=== PATIENT | female | born 1950 | race Caucasian/White ===

== ENCOUNTER 2017-10-03 22:53 | Emergency (ER) | payer MEDICARE ==
[~2017-10-03] VITALS: Ht 160 cm; Wt 85.7 kg
[~2017-10-03 22:53] MED LIST: ADVAI250I INH; ALBU0.086 NEB; BENZ100 PO; CLON.5 PO; HYCO5UDC PO; IBUP600T26 PO; MEDR4PAK3 PO; NEXI20CA PO; ZOFR4TAB3 SL
[2017-10-03 23:08] VITALS: BP 122/70; PULSE 81; RESP 16; TEMP 97.5; O2SAT 98
[2017-10-03] MEDS ORDERED: ALBUAER3 NEB (23:27)
[2017-10-03] MEDS ORDERED: CLON.5 PO (23:27)
[2017-10-03] MEDS ORDERED: [UNRECOGNIZED DRUG - OTHER] PO (23:34)
[2017-10-03] MEDS ORDERED: ADVA250A INH (23:34)
[2017-10-03] MEDS ORDERED: VITA500S3 SL (23:34)
[2017-10-03] MEDS ORDERED: PROZ20CA11 PO (23:34)
[2017-10-03] MEDS ORDERED: VITA100064 PO (23:34)
[2017-10-03] MEDS ORDERED: VITATAB11 PO (23:34)
[2017-10-03] MEDS ORDERED: CLAR10CA3 PO (23:34)
[2017-10-03] MEDS ORDERED: LUTE1TAB PO (23:34)
[2017-10-03] MEDS ORDERED: MULTTAB67 PO (23:34)
[2017-10-04] MEDS ORDERED: BACT800T5 PO (00:15)
[2017-10-04] MEDS ORDERED: MEDR4PAK PO (00:15)
[2017-10-04] MEDS ORDERED: FAMOTIDINE 20 MG TAB PO ONE (00:15)
[2017-10-04] MEDS ORDERED: CEPHALEXIN MONOHYDRATE 500 MG CAP PO ONE (00:15)
[2017-10-04] MEDS ORDERED: CEPH-460 PO (00:15)
[2017-10-04] MEDS ORDERED: SULFAMETHOXAZOLE-TRIMETHOPRIM DS 800-160 MG TAB PO ONE (00:15)
[2017-10-04] MEDS ORDERED: CETIRIZINE HCL 10 MG TAB PO ONE (00:15)
--- NOTE | 2017-10-04 00:17 | PD ---
HPI Chief Complaint: Skin Problem Time Seen by Provider: 00:05 Travel History International Travel<30 days: No Contact w/Intl Traveler<30days: No Traveled to known affect area: No History of Present Illness HPI 67 year old female here for painful localized red indurated tender proximal medial right thigh lesion. Patient states that she noticed this this evening further first time while at a play this evening. 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 No generalized urticaria no lip tongue or throat swelling. Patient does have history of asthma and didn't use her inhaler this evening but cannot recall if she used the inhaler for wheezing before after she noticed the pain to her thigh area. Patient does not feel short of breath at this time has no chest pain and had no near-syncope or syncopal episode nausea vomiting crampy abdominal pain or diarrhea. Patient is not diabetic. PFSH Past Medical History Narrative Medical Aspirin use asthma TIA pneumonia hysterectomy blood blepharoplasty occasional alcohol use Hx Anticoagulant Therapy: Yes (ASA 81 MG) Asthma: Yes Cerebrovascular Accident: Yes (TIA X2) Diminished Hearing: Yes (CURRENT PROBLEM) Gastrointestinal Disorders: Yes (ACID REFLUX ) Pneumonia: Yes Tetanus Vaccination: > 5 Years ?: Not Menopausal: Yes Past Surgical History Hysterectomy: Yes Other Surgery: Yes (BILATERAL EYE LIDS 2010) Social History Alcohol Use: Yes (RARE) Tobacco Use: No Substance Use: No Allergies-Medications (Allergen,Severity, Reaction): Coded Allergies: codeine (Verified Allergy, Severe, VOMITING, 10/03/17) Reported Meds & Prescriptions Reported Meds & Active Scripts Active Keflex (Cephalexin) 500 Mg Capsule 500 Mg PO Q6H 7 Days Bactrim DS (Sulfamethoxazole-Trimethoprim) 800-160 Mg Tab 1 Tab PO BID Medrol Dosepak (Methylprednisolone) 4 Mg Dspk 4 Mg PO DIRECTED Per Pharmacist direction Reported [Giorgio Rubin] 1 Tab PO DAILY Lutein 10 Mg Tab 10 Mg PO DAILY Vitamin B-12 (Cyanocobalamin) 500 Mcg Subl 500 Mcg SL DAILY Vitamin D3 (Cholecalciferol) 1,000 Unit Tab 1,000 Units PO DAILY Vitamin B Complex (B-Complex Vitamins) 1 Tab 1 Tab PO DAILY Multiple Vitamin 1 Tab 1 Tab PO DAILY Claritin (Loratadine) 10 Mg Cap 10 Mg PO DAILY Prozac (Fluoxetine HCl) 20 Mg Cap 20 Mg PO DAILY Advair Diskus Inh (Fluticasone-Salmeterol Inh) 250-50 Mcg/Blist Aer 1 Puff INH BID Rinse mouth after use. Klonopin (Clonazepam) 0.5 Mg Tab 0.5 Mg PO HS Proair Hfa (Albuterol Sulfate) 90 Mcg Hfa.aer.ad 1 Nebule NEB Q4HR PRN Review of Systems Except as stated in HPI: all other systems reviewed are Neg General / Constitutional: No: Fever, Chills Eyes: No: Visual changes HENT: No: Headaches Cardiovascular: No: Chest Pain or Discomfort Respiratory: No: Shortness of Breath Gastrointestinal: No: Nausea, Vomiting Genitourinary: No: Flank Pain Musculoskeletal: No: Myalgias, Arthralgias Skin: Positive Rash Neurologic: No: Weakness Hematologic/Lymphatic: No: Lymph Node Enlargement Physical Exam Narrative GENERAL: Well-developed well-nourished female in no acute distress no respiratory distress no stridor or hoarseness. SKIN: Warm and dry. No urticaria. Attention right lower extremity proximal medial thigh oval area of erythema with central induration without fluctuance 5 cm x 4 cm tender to palpation without ascending erythema or groin lymphadenopathy. On direct visualization no vesicle no central puncture wound. HEAD: Normocephalic. EYES: No scleral icterus. No injection or drainage. NECK: Supple, trachea midline. No JVD or lymphadenopathy. CARDIOVASCULAR: Regular rate and rhythm without murmurs, gallops, or rubs. RESPIRATORY: Breath sounds equal bilaterally. No accessory muscle use. GASTROINTESTINAL: Abdomen soft, non-tender, nondistended. MUSCULOSKELETAL: No cyanosis, or edema. BACK: Nontender without obvious deformity. No CVA tenderness. Data Data Last Documented VS Vital Signs Date Time Temp Pulse Resp B/P (MAP) Pulse Ox O2 Delivery O2 Flow Rate FiO2 10/03/17 23:08 97.5 81 16 122/70 (87) 98 Orders Orders Cetirizine (Zyrtec) (10/04/17 00:15) Famotidine (Pepcid) (10/04/17 00:15) Sulfamet-Trimeth Ds 800-160 Mg (Bactrim (10/04/17 00:15) Cephalexin (Keflex) (10/04/17 00:15) Ed Discharge Order (10/04/17 00:17) [facility] Medical Decision Making Medical Screen Exam Complete: Yes Emergency Medical Condition: Yes Medical Record Reviewed: Yes Differential Diagnosis Contact dermatitis, allergic dermatitis, spider bite, ant bite, cellulitis, folliculitis, abscess Narrative Course Patient with localized area of erythema and induration without fluctuance pointing pustule or vesicle concerning for focal area of cellulitis versus insect envenomation versus allergic dermatitis will be started on oral antibiotic encouraged to use warm compresses take acetaminophen or ibuprofen as tolerated also recommend use of H2 blockers and antihistamine for symptom relief. Patient encouraged to follow-up with her primary care provider or return to the emergency department for any worsening of condition condition or change in condition. Patient encouraged to monitor temperature closely while on antibiotic and may need to return to have incision and drainage of site is may represent early abscess although no indication for abscess at this time. Diagnosis Primary Impression: Allergic dermatitis Additional Impression: Cellulitis of right thigh Referrals: Primary Care Physician 2 days Patient Instructions: General Instructions Additional Instructions: Monitor temperature every 4 hours with thermometer take acetaminophen/Tylenol every 4 hours for fever 100.4F or greater and/or ibuprofen/Advil/Motrin every 6 -8 hours as needed for fever 100.4F or greater or for any associated with inflammation Take Zyrtec 10 mg daily or Benadryl 25-50 mg every 4-6 hours as needed for allergic reaction/itching Take Zantac 150 twice daily for 7 days Complete steroid course as prescribed Take antibiotic as prescribed Return to the emergency department for any concerns or change in condition Wound check/site check at 48 hours follow-up with primary care provider Med/Other Pt SpecificInfo: Prescription(s) given Scripts Cephalexin (Keflex) 500 Mg Capsule 500 MG PO Q6H for Infection for 7 Days, #28 CAP 0 Refills Prov: Chana Balbuena MD 10/04/17 Sulfamethoxazole-Trimethoprim (Bactrim DS) 800-160 Mg Tab 1 TAB PO BID for Infection, #14 TAB 0 Refills Prov: Chana Balbuena MD 10/04/17 Methylprednisolone Dosepak (Medrol Dosepak) 4 Mg Dspk 4 MG PO DIRECTED, #1 DSPK 0 Refills Per Pharmacist direction Prov: Chana Balbuena MD 10/04/17 Disposition: 01 DISCHARGE HOME Condition: Stable Chana Balbuena MD Oct 04, 2017 00:17
[2017-10-04] MEDS ORDERED: GARC500T PO (10:48)
== END 2017-10-04 00:26 | disposition home or self-care (01) ==
LOC: PHED 22:53
DX: L23.9 Allergic contact dermatitis, unspecified cause (principal); L03.115 Cellulitis of right lower limb
CPT/HCPCS: 99284

== ENCOUNTER 2018-01-04 15:01 | Inpatient (IN) | payer MEDICARE ==
[2018-01-04] VITALS (7 sets, daily range): BP systolic 105–143; BP diastolic 55–83; PULSE 97–110; RESP 18–20; TEMP 97.8–98.6; O2SAT 96–100
[~2018-01-04] VITALS: Ht 160 cm; Wt 92.1 kg
[~2018-01-04 15:01] MED LIST changes: +ADVA250A INH; -ADVAI250I INH; -ALBU0.086 NEB; +ALBUAER3 NEB; +BACT800T5 PO; -BENZ100 PO; +CEPH-460 PO; +CLAR10CA3 PO; +GARC500T PO; -HYCO5UDC PO; -IBUP600T26 PO; +LUTE1TAB PO; +MEDR4PAK PO; -MEDR4PAK3 PO; +MULTTAB67 PO; -NEXI20CA PO; +PROZ20CA11 PO; +VITA100064 PO; +VITA500S3 SL; +VITATAB11 PO; -ZOFR4TAB3 SL; +[UNRECOGNIZED DRUG - OTHER] PO
[2018-01-04] MEDS ORDERED: cefTRIAXone INJ 1,000 MG in SODIUM CHLORIDE 0.9% INJ 100 ML IV ONE (15:15)
[2018-01-04] MEDS ORDERED: AZITHROMYCIN INJ 500 MG in SODIUM CHLOR 0.9% 250 ML INJ 250 ML IV ONE (15:15)
[2018-01-04] MEDS ORDERED: methylPREDNISolone SOD SUCC 125 MG/2 ML VIAL IV PUSH ONE (15:15)
[2018-01-04] MEDS ORDERED: SODIUM CHLOR 0.9% 1000 ML INJ 1,000 ML IV SCH ×2 (15:15→16:08)
--- NOTE | 2018-01-04 15:22 | PD ---
HPI Chief Complaint: Cold / Flu Symptoms Time Seen by Provider: 15:05 Travel History International Travel<30 days: No Contact w/Intl Traveler<30days: No Traveled to known affect area: No History of Present Illness HPI This is a 67-year-old female with a history of asthma who presents for difficulty breathing. She states that on December 30, she developed cough, congestion, wheezing and sore throat. She saw her primary physician the next day and was started on prednisone and cefuroxime. She has been using her nebulizer frequently. Despite this, she continues to have worsening shortness of breath. Aggravated by exertion. She believes she has been febrile at home. Her was diagnosed with influenza today. She states that she has had to be hospitalized for asthma exacerbations frequently in the past. 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 She denies chest pain, diaphoresis, lower extremity edema. No associated nausea, vomiting, diarrhea. Symptoms are moderate in severity. Onset gradual. PFSH Past Medical History Hx Anticoagulant Therapy: Yes (ASA 81 MG) Asthma: Yes Cerebrovascular Accident: Yes (TIA X2) Diminished Hearing: Yes (CURRENT PROBLEM) Gastrointestinal Disorders: Yes (ACID REFLUX ) Respiratory: Yes Pneumonia: Yes ?: Not Menopausal: Yes Past Surgical History Hysterectomy: Yes Other Surgery: Yes (BILATERAL EYE LIDS 2010) Social History Alcohol Use: Yes (RARE) Tobacco Use: No Substance Use: No Allergies-Medications (Allergen,Severity, Reaction): Coded Allergies: codeine (Verified Allergy, Severe, VOMITING, 01/04/18) Reported Meds & Prescriptions Reported Meds & Active Scripts Active Reported Acyclovir 400 Mg Tab 400 Mg PO BID Cefuroxime (Cefuroxime Axetil) 500 Mg Tab 500 Mg PO BID Prednisone (48) 10 mg tab Dose Pack (Prednisone) 10 Mg Dspk 10 Mg PO DIRECTED Prednisone 10 Mg Tab 10 Mg PO DAILY Garcinia Cambogia 500-200 mg-Mcg (Garcinia Cambogia-Chromium) 200 Mcg-500 Mg Tab 1 Tab PO DAILY Lutein 10 Mg Tab 10 Mg PO DAILY Vitamin B-12 (Cyanocobalamin) 500 Mcg Subl 500 Mcg SL DAILY Vitamin D3 (Cholecalciferol) 1,000 Unit Tab 1,000 Units PO DAILY Vitamin B Complex (B-Complex Vitamins) 1 Tab 1 Tab PO DAILY Multiple Vitamin 1 Tab 1 Tab PO DAILY Claritin (Loratadine) 10 Mg Cap 10 Mg PO DAILY Prozac (Fluoxetine HCl) 20 Mg Cap 20 Mg PO DAILY Advair Diskus Inh (Fluticasone-Salmeterol Inh) 250-50 Mcg/Blist Aer 1 Puff INH BID Rinse mouth after use. Klonopin (Clonazepam) 0.5 Mg Tab 0.5 Mg PO HS Proair Hfa (Albuterol Sulfate) 90 Mcg Hfa.aer.ad 1 Nebule NEB Q4HR PRN Review of Systems Except as stated in HPI: all other systems reviewed are Neg Physical Exam Narrative GENERAL: Alert, well nourished, well appearing patient resting on the bed in no acute distress. Vital Signs reviewed SKIN: Focused skin assessment warm/dry. HEAD: Atraumatic. Normocephalic. EYES: Pupils equal and round. No scleral icterus. No injection or drainage. ENT: No nasal bleeding or discharge. Mucous membranes pink and moist. Posterior oropharynx with no erythema, edema, exudate. Uvula is midline. NECK: Trachea midline. No JVD. Spontaneous, painless full range of motion with no meningismus CARDIOVASCULAR: Regular rate and rhythm. No murmur appreciated. Extremities warm and well perfused with bounding peripheral pulses RESPIRATORY: Mildly increased work of breathing. Diffuse expiratory wheezes. Symmetric lung sounds. GASTROINTESTINAL: Abdomen soft, non-tender, nondistended. Normal bowel sounds. No rigid, rebound, guarding MUSCULOSKELETAL: No obvious deformities. No clubbing. No cyanosis. No edema. Compartments are soft NEUROLOGICAL: Awake and alert. No obvious cranial nerve deficits. Motor grossly within normal limits. Normal speech. Sensation intact. Normal gait PSYCHIATRIC: Appropriate mood and affect; insight and judgment normal. Data Data Last Documented VS Vital Signs Date Time Temp Pulse Resp B/P (MAP) Pulse Ox O2 Delivery O2 Flow Rate FiO2 01/04/18 15:37 97 20 105/58 (74) 99 Room Air 01/04/18 15:28 21 01/04/18 15:09 98.6 Orders Orders Sepsis Workup Initiated (01/04/18 ) Electrocardiogram (01/04/18 15:13) Complete Blood Count With Diff (01/04/18 15:13) Comprehensive Metabolic Panel (01/04/18 15:13) Lactic Acid Sepsis Protocol (01/04/18 15:13) Influenzae A/B Antigen (01/04/18 15:13) Blood Culture (01/04/18 15:13) Chest, Pa & Lat (01/04/18 15:13) Ecg Monitoring (01/04/18 15:13) Iv Access Insert/Monitor (01/04/18 15:13) Oximetry (01/04/18 15:13) Oxygen Administration (01/04/18 15:13) Methylprednisolone So Succ Inj (Solumedr (01/04/18 15:15) Albuterol-Ipratropium Neb (Duoneb Neb) (01/04/18 15:15) Sodium Chlor 0.9% 1000 Ml Inj (Ns 1000 M (01/04/18 15:15) Ceftriaxone Inj (Rocephin Inj) (01/04/18 15:15) Azithromycin Inj (Zithromax Inj) (01/04/18 15:15) Group A Rapid Strep Screen (01/04/18 15:22) Sodium Chlor 0.9% 1000 Ml Inj (Ns 1000 M (01/04/18 16:08) Strep Culture (Group A) (01/04/18 15:45) Admit Order (Ed Use Only) (01/04/18 16:22) Labs Laboratory Tests Test 01/04/18 15:23 01/04/18 15:28 White Blood Count 7.8 TH/MM3 Red Blood Count 4.84 MIL/MM3 Hemoglobin 14.1 GM/DL Hematocrit 42.4 % Mean Corpuscular Volume 87.6 FL Mean Corpuscular Hemoglobin 29.1 PG Mean Corpuscular Hemoglobin Concent 33.2 % Red Cell Distribution Width 13.7 % Platelet Count 227 TH/MM3 Mean Platelet Volume 7.5 FL Neutrophils (%) (Auto) 89.3 % Lymphocytes (%) (Auto) 6.7 % Monocytes (%) (Auto) 3.5 % Eosinophils (%) (Auto) 0.1 % Basophils (%) (Auto) 0.4 % Neutrophils # (Auto) 7.0 TH/MM3 Lymphocytes # (Auto) 0.5 TH/MM3 Monocytes # (Auto) 0.3 TH/MM3 Eosinophils # (Auto) 0.0 TH/MM3 Basophils # (Auto) 0.0 TH/MM3 CBC Comment DIFF FINAL Differential Comment Blood Urea Nitrogen 14 MG/DL Creatinine 0.76 MG/DL Random Glucose 144 MG/DL Total Protein 7.1 GM/DL Albumin 3.5 GM/DL Calcium Level 9.2 MG/DL Alkaline Phosphatase 80 U/L Aspartate Amino Transf (AST/SGOT) 18 U/L Alanine Aminotransferase (ALT/SGPT) 32 U/L Total Bilirubin 0.1 MG/DL Sodium Level 143 MEQ/L Potassium Level 3.4 MEQ/L Chloride Level 110 MEQ/L Carbon Dioxide Level 22.6 MEQ/L Anion Gap 10 MEQ/L Estimat Glomerular Filtration Rate 75 ML/MIN Lactic Acid Level 3.5 mmol/L [facility] Medical Decision Making Medical Screen Exam Complete: Yes Emergency Medical Condition: Yes Medical Record Reviewed: Yes Interpretation(s) EKG shows sinus tachycardia with a rate of 102. No acute ST elevation Chest x-ray shows no acute process Laboratory Tests Test 01/04/18 15:23 01/04/18 15:28 White Blood Count 7.8 TH/MM3 Red Blood Count 4.84 MIL/MM3 Hemoglobin 14.1 GM/DL Hematocrit 42.4 % Mean Corpuscular Volume 87.6 FL Mean Corpuscular Hemoglobin 29.1 PG Mean Corpuscular Hemoglobin Concent 33.2 % Red Cell Distribution Width 13.7 % Platelet Count 227 TH/MM3 Mean Platelet Volume 7.5 FL Neutrophils (%) (Auto) 89.3 % Lymphocytes (%) (Auto) 6.7 % Monocytes (%) (Auto) 3.5 % Eosinophils (%) (Auto) 0.1 % Basophils (%) (Auto) 0.4 % Neutrophils # (Auto) 7.0 TH/MM3 Lymphocytes # (Auto) 0.5 TH/MM3 Monocytes # (Auto) 0.3 TH/MM3 Eosinophils # (Auto) 0.0 TH/MM3 Basophils # (Auto) 0.0 TH/MM3 CBC Comment DIFF FINAL Differential Comment Blood Urea Nitrogen 14 MG/DL Creatinine 0.76 MG/DL Random Glucose 144 MG/DL Total Protein 7.1 GM/DL Albumin 3.5 GM/DL Calcium Level 9.2 MG/DL Alkaline Phosphatase 80 U/L Aspartate Amino Transf (AST/SGOT) 18 U/L Alanine Aminotransferase (ALT/SGPT) 32 U/L Total Bilirubin 0.1 MG/DL Sodium Level 143 MEQ/L Potassium Level 3.4 MEQ/L Chloride Level 110 MEQ/L Carbon Dioxide Level 22.6 MEQ/L Anion Gap 10 MEQ/L Estimat Glomerular Filtration Rate 75 ML/MIN Lactic Acid Level 3.5 mmol/L Differential Diagnosis Sepsis, asthma exacerbation, bronchitis, pneumonia, influenza, strep pharyngitis , viral pharyngitis Narrative Course The patient was placed on the brick catcher. IV access was established. Labs , imaging were performed. Patient was given IV fluid boluses. She was given Rocephin and azithromycin to cover community-acquired pneumonia. She was given Solu-Medrol and duo nebs. Patient is influenza A positive. She has had her symptoms for well over 48 hours and I do not feel she would benefit from Tamiflu. Patient has already been using albuterol nebulizers and prednisone at home. She has failed outpatient therapy. Plan for admission for further evaluation and care. Diagnosis Primary Impression: Sepsis Qualified Codes: A41.9 - Sepsis, unspecified organism Additional Impressions: Influenza Bronchitis Failure of outpatient treatment Admitting Information Admitting Physician Requests: it Carmelina Evans MD Jan 04, 2018 15:22
[2018-01-04] MEDS: RESP: ALBUTEROL 2.5 MG/IPRATROPIUM 0.5 MG NEB (SCH) INH (15:26)
[2018-01-04] MEDS ORDERED: PRED10 PO (15:30)
[2018-01-04] MEDS ORDERED: CEFU1TAB20 PO (15:30)
[2018-01-04] MEDS ORDERED: PRED10PA2 PO (15:30)
[2018-01-04] MEDS ORDERED: ACYC400T PO (15:32)
[2018-01-04 15:34] LABS: BASOPHIL % 0.4 % (0.0-2.0); EOSINOPHIL % 0.1 % (0.0-4.0); HEMATOCRIT 42.4 % (35.0-46.0); HEMOGLOBIN 14.1 GM/DL (11.6-15.3); LYMPH % 6.7 % (9.0-44.0); LYMPHOCYTE # 0.5 TH/MM3 (1.0-4.8); MEAN CELL VOLUME 87.6 FL (80.0-100.0); MEAN CORPUSCULAR HEMOGLOBIN 29.1 PG (27.0-34.0); MEAN CORPUSCULAR HGB CONC 33.2 % (32.0-36.0); MEAN PLATELET VOLUME 7.5 FL (7.0-11.0); MONO % 3.5 % (0.0-8.0); MONOCYTE # 0.3 TH/MM3 (0-0.9); NEUT % 89.3 % (16.0-70.0); PLATELET COUNT 227 TH/MM3 (150-450); RED BLOOD COUNT 4.84 MIL/MM3 (4.00-5.30); RED CELL DISTRIBUTION WIDTH 13.7 % (11.6-17.2); WHITE BLOOD COUNT 7.8 TH/MM3 (4.0-11.0)
[2018-01-04 15:45] LABS: CHLORIDE 110 MEQ/L (98-107); SODIUM (NA) 143 MEQ/L (136-145)
[2018-01-04 15:48] LABS: CALCIUM 9.2 MG/DL (8.5-10.1)
[2018-01-04 15:49] LABS: ALBUMIN 3.5 GM/DL (3.4-5.0); BICARBONATE 22.6 MEQ/L (21.0-32.0); BLOOD UREA NITROGEN 14 MG/DL (7-18); GLUCOSE,RANDOM 144 MG/DL (74-106)
[2018-01-04 15:52] LABS: ALT (GPT) 32 U/L (10-53); AST (GOT) 18 U/L (15-37); CREATININE 0.76 MG/DL (0.50-1.00); GLOMERULAR FILTRATION RATE 75 ML/MIN (>89)
[2018-01-04 15:53] LABS: TOTAL BILIRUBIN ADULT 0.1 MG/DL (0.2-1.0); TOTAL PROTEIN 7.1 GM/DL (6.4-8.2)
[2018-01-04 15:54] LABS: LACTIC ACID SEPSIS PROTOCOL 3.5 mmol/L (0.4-2.0)
[2018-01-04 15:55] LABS: ALKALINE PHOSPHATASE 80 U/L (45-117)
--- NOTE | 2018-01-04 16:13 | RADRPT ---
EXAM DATE/TIME: 01/04/2018 15:21 [place] COMPARISON: CHEST PA & LAT, May 11, 2015, 20:12. INDICATIONS : Wheezing. MEDICAL HISTORY : Asthma SURGICAL HISTORY : None. ENCOUNTER: Initial ACUITY: 4 - 6 days PAIN SCORE: 0/10 LOCATION: Bilateral chest FINDINGS: PA and lateral views of the chest demonstrate the lungs to be symmetrically aerated without evidence of mass, infiltrate or effusion. The cardiomediastinal contours are unremarkable. Osseous structure s are intact. CONCLUSION: 1. No acute cardiopulmonary disease. Franklyn Love MD on January 04, 2018 at 16:13 Board Certified Radiologist. This report was verified electronically.
[2018-01-04] MEDS ORDERED: NALOXONE HCL 0.4 MG/ML AMP IV PUSH PRN (16:45)
[2018-01-04] MEDS ORDERED: SODIUM CHLORIDE 0.9% FLUSH 10 ML FLUSH IV FLUSH PRN (16:45)
[2018-01-04] MEDS ORDERED: SENNOSIDES 8.6 MG TAB PO PRN (16:45)
[2018-01-04] MEDS ORDERED: RESP: ALBUTEROL 2.5 MG/IPRATROPIUM 0.5 MG NEB (PRN) NEB (16:45)
[2018-01-04] MEDS ORDERED: ACETAMINOPHEN 325 MG TAB PO PRN (16:45)
[2018-01-04] MEDS ORDERED: ONDANSETRON HCL 4 MG/2 ML VIAL IVP PRN (16:45)
--- NOTE | 2018-01-04 16:50 | HHI.HP ---
[facility] Service [facility] Primary Care Physician Rafal Vo MD Admission Diagnosis Sepsis, Influenza, Bronchitis, Asthma Exacerbation Diagnoses: Chief Complaint: Shortness of breath Travel History International Travel<30 Days: No Contact w/Intl Traveler <30 Da: No Traveled to Known Affected Are: No History of Present Illness Patient is a 67-year-old female with a history of asthma who comes in to the hospital with a week of increasing shortness of breath with cough and sore throat. She saw her outpatient tool turret lathe set up operator who gave her antibiotics and steroids. She did not improve. She had a follow-up appointment today for increased work of breathing and dyspnea on exertion and was sent by his office to the emergency room. This time patient is tachycardic, tachypneic and coughing excessively. Patient's been recommended to be admitted to the hospital due to acute asthma exacerbation and influenza which is positive at this time. Review of Systems Constitutional: COMPLAINS OF: Fatigue, Chills, DENIES: Diaphoretic episodes, Fever, Weight gain, Weight loss, Dizziness, Change in appetite, Night Sweats Endocrine: DENIES: Abnorml menstrual pattern, Heat/cold intolerance, Polydipsia , Polyuria, Polyphagia Eyes: DENIES: Blurred vision, Diplopia, Eye inflammation, Eye pain, Vision loss , Photosensitivity, Double Vision Ears, nose, mouth, throat: DENIES: Tinnitus, Hearing loss, Vertigo, Nasal discharge, Oral lesions, Throat pain, Hoarseness, Ear Pain, Running Nose, Epistaxis, Sinus Pain, Toothache, Odynophagia Respiratory: COMPLAINS OF: Wheezing, Sputum production, Shortness of breath, DENIES: Apneas, Cough, Snoring, Hemoptysis Cardiovascular: COMPLAINS OF: Palpitations, Dyspnea on Exertion, DENIES: Chest pain, Syncope, PND, Lower Extremity Edema, Orthopnea, Claudication Gastrointestinal: DENIES: Abdominal pain, Black stools, Bloody stools, Constipation, Diarrhea, Nausea, Vomiting, Difficulty Swallowing, Anorexia Genitourinary: DENIES: Abnormal vaginal bleeding, Dysmenorrhea, Dyspareunia, Sexual dysfunction, Urinary frequency, Urinary incontinence, Urgency, Hematuria , Dysuria, Nocturia, Vaginal discharge Musculoskeletal: DENIES: Joint pain, Muscle aches, Stiffness, Joint Swelling, Back pain, Neck pain Hematologic/lymphatic: DENIES: Bruising, Lymphadenopathy Immunologic/allergic: DENIES: Eczema, Urticaria Neurologic: DENIES: Abnormal gait, Headache, Localized weakness, Paresthesias, Seizures, Speech Problems, Tremor, Poor Balance Psychiatric: COMPLAINS OF: Depression (Currently controlled on medications), DENIES: Anxiety, Confusion, Mood changes, Hallucinations, Agitation, Suicidal Ideation, Homicidal Ideation, Delusions Except as stated in HPI: all other systems reviewed are Neg Past Family Social History Past Medical History Asthma Depression anxiety Past Surgical History Tonsils Reported Medications Reviewed in the EMR, recent cefuroxime and steroid pack Allergies: Coded Allergies: codeine (Verified Allergy, Severe, VOMITING, 01/04/18) Active Ordered Medications Reviewed in the EMR Family History Family history of suicide and schizophrenia and diabetes Social History No tobacco or alcohol dependency Physical Exam Vital Signs Vital Signs Date Time Temp Pulse Resp B/P (MAP) Pulse Ox O2 Delivery O2 Flow Rate FiO2 01/04/18 16:39 105 20 116/58 (77) 99 Room Air 01/04/18 15:37 97 20 105/58 (74) 99 Room Air 01/04/18 15:36 98 Room Air 01/04/18 15:28 96 21 01/04/18 15:11 110 22 98 Room Air 01/04/18 15:09 98.6 110 20 143/83 (103) 98 Physical Exam GENERAL: This is a well-nourished, well-developed patient, short of breath at rest SKIN: No rashes, ecchymoses or lesions. Cool and dry. HEAD: Atraumatic. Normocephalic. No temporal or scalp tenderness. EYES: Pupils equal round and reactive. Extraocular motions intact. No scleral icterus. No injection or drainage. ENT: Nose without bleeding, purulent drainage or septal hematoma. Throat without erythema, tonsillar hypertrophy or exudate. Uvula midline. Airway patent. NECK: Trachea midline. No JVD or lymphadenopathy. Supple, nontender, no meningeal signs. CARDIOVASCULAR: Regular rate and rhythm without murmurs, gallops, or rubs. RESPIRATORY: C bilateral wheezes or rhonchi GASTROINTESTINAL: Abdomen soft, non-tender, nondistended. No hepato-splenomegaly , or palpable masses. No guarding. MUSCULOSKELETAL: Extremities without clubbing, cyanosis, or edema. No joint tenderness, effusion, or edema noted. No calf tenderness. Negative Homans sign bilaterally. NEUROLOGICAL: Awake and alert. Cranial nerves II through XII intact. Motor and sensory grossly within normal limits. Five out of 5 muscle strength in all muscle groups. Normal speech. Laboratory Laboratory Tests Test 01/04/18 15:23 01/04/18 15:28 White Blood Count 7.8 Red Blood Count 4.84 Hemoglobin 14.1 Hematocrit 42.4 Mean Corpuscular Volume 87.6 Mean Corpuscular Hemoglobin 29.1 Mean Corpuscular Hemoglobin Concent 33.2 Red Cell Distribution Width 13.7 Platelet Count 227 Mean Platelet Volume 7.5 Neutrophils (%) (Auto) 89.3 Lymphocytes (%) (Auto) 6.7 Monocytes (%) (Auto) 3.5 Eosinophils (%) (Auto) 0.1 Basophils (%) (Auto) 0.4 Neutrophils # (Auto) 7.0 Lymphocytes # (Auto) 0.5 Monocytes # (Auto) 0.3 Eosinophils # (Auto) 0.0 Basophils # (Auto) 0.0 CBC Comment DIFF FINAL Differential Comment Blood Urea Nitrogen 14 Creatinine 0.76 Random Glucose 144 Total Protein 7.1 Albumin 3.5 Calcium Level 9.2 Alkaline Phosphatase 80 Aspartate Amino Transf (AST/SGOT) 18 Alanine Aminotransferase (ALT/SGPT) 32 Total Bilirubin 0.1 Sodium Level 143 Potassium Level 3.4 Chloride Level 110 Carbon Dioxide Level 22.6 Anion Gap 10 Estimat Glomerular Filtration Rate 75 Lactic Acid Level 3.5 Date/Time Source Procedure Growth Status 01/04/18 15:28 Blood Peripheral Aerobic Blood Culture Pending Received 01/04/18 15:28 Blood Peripheral Anaerobic Blood Culture Pending Received 01/04/18 15:45 Throat Group A Streptococcus Screen Pending Received Result Diagram: 01/04/18 1523 01/04/18 1523 Imaging Last Impressions Chest X-Ray 01/04/18 1513 Signed Impressions: Service Date/Time: Thursday, January 04, 2018 15:21 - CONCLUSION: 1. No acute cardiopulmonary disease. Franklyn Love MD Septic Shock Reassessment Septic shock perfusion: reassessment completed Caprini VTE Risk Assessment Caprini VTE Risk Assessment: Mod/High Risk (score >= 2) Caprini Risk Assessment Model Point Value = 1 Point Value = 2 Point Value = 3 Point Value = 5 Age 41-60 Minor surgery BMI > 25 kg/m2 Swollen legs Varicose veins or History of unexplained or recurrent spontaneous Oral contraceptives or hormone replacement Sepsis (< 1 month) Serious lung disease, including pneumonia (< 1 month) Abnormal pulmonary function Acute myocardial infarction Congestive heart failure (< 1 month) History of inflammatory bowel disease Medical patient at bed rest Age 61-74 Arthroscopic surgery Major open surgery (> 45 min) Laparoscopic surgery (> 45 min) Malignancy Confined to bed (> 72 hours) Immobilizing plaster cast Central venous access Age >= 75 History of VTE Family history of VTE Factor V Leiden Prothrombin [id number] Lupus anticoagulant Anticardiolipin antibodies Elevated serum homocysteine Heparin-induced thrombocytopenia Other congenital or acquired thrombophilia Stroke (< 1 month) Elective arthroplasty Hip, pelvis, or leg fracture Acute spinal cord injury (< 1 month) Prophylaxis Regimen Total Risk Factor Score Risk Level Prophylaxis Regimen 0-1 Low Early ambulation 2 Moderate Order ONE of the following: *Sequential Compression Device (SCD) *Heparin 5000 units SQ BID 3-4 Higher Order ONE of the following medications: *Heparin 5000 units SQ TID *Enoxaparin/Lovenox 40 mg SQ daily (WT < 150 kg, CrCl > 30 mL/min) *Enoxaparin/Lovenox 30 mg SQ daily (WT < 150 kg, CrCl > 10-29 mL/min) *Enoxaparin/Lovenox 30 mg SQ BID (WT < 150 kg, CrCl > 30 mL/min) AND/OR *Sequential Compression Device (SCD) 5 or more Highest Order ONE of the following medications: *Heparin 5000 units SQ TID (Preferred with Epidurals) *Enoxaparin/Lovenox 40 mg SQ daily (WT < 150 kg, CrCl > 30 mL/min) *Enoxaparin/Lovenox 30 mg SQ daily (WT < 150 kg, CrCl > 10-29 mL/min) *Enoxaparin/Lovenox 30 mg SQ BID (WT < 150 kg, CrCl > 30 mL/min) AND *Sequential Compression Device (SCD) Assessment and Plan Problem List: (1) Asthma ICD Code: J45.909 - Unspecified asthma, uncomplicated Plan: Continue with nebulized bronchodilators, IV steroids Empiric antibiotics due to pneumonia Supportive care Respiratory to follow Patient follows up with Dr. Gee pulmonology (2) Influenza ICD Code: J11.1 - Influenza due to unidentified influenza virus with other respiratory manifestations Status: Acute Plan: Continue Tamiflu and supportive care Physician Certification 2 Midnight Certification Type: Admission for Inpatient Services Order for Inpatient Services The services are ordered in accordance with Medicare regulations or non- Medicare payer requirements, as applicable. In the case of services not specified as inpatient-only, they are appropriately provided as inpatient services in accordance with the 2-midnight benchmark. Estimated LOS (days): 3 3 days is the estimated time the patient will need to remain in the hospital, assuming treatment plan goals are met and no additional complications. Post-Hospital Plan: Shannon Urrutia MD Jan 04, 2018 16:50
[2018-01-04] MEDS ORDERED: POTASSIUM CHLORIDE 10 MEQ CONTROLLED RELEASE TAB PO ONE (17:00)
[2018-01-04] MEDS: ENOXAPARIN SODIUM 40 MG/0.4 ML SYRINGE SQ SCH (17:33)
[2018-01-04] MEDS: SODIUM CHLOR 0.9% 1000 ML INJ 1,000 ML IV SCH (17:33)
[2018-01-04] MEDS: guaiFENesin/DEXTROMETHORPHAN 200 MG/20 MG/10 ML CUP PO PRN (19:57)
[2018-01-04] MEDS: ACYCLOVIR 200 MG CAP PO SCH ×2 (19:58→20:07)
[2018-01-04] MEDS: OSELTAMIVIR PHOSPHATE 75 MG CAP PO SCH (19:59)
[2018-01-04] MEDS: clonazePAM 0.5 MG TAB PO SCH (19:59)
[2018-01-04] MEDS: SODIUM CHLORIDE 0.9% FLUSH 10 ML FLUSH IV FLUSH SCH (20:00)
[2018-01-04] MEDS: RESP: ALBUTEROL 2.5 MG/IPRATROPIUM 0.5 MG NEB (SCH) NEB (20:04)
[2018-01-04] MEDS: methylPREDNISolone SOD SUCC 40 MG/1 ML VIAL IV PUSH SCH (21:01)
[2018-01-04] MEDS: BUDESONIDE-FORMOTEROL 160/4.5 MCG INHALER INH SCH (21:01)
[2018-01-05] VITALS (9 sets, daily range): BP systolic 115–150; BP diastolic 62–82; PULSE 79–90; RESP 18–22; TEMP 98.1–98.9; O2SAT 94–98
[2018-01-05] MEDS: guaiFENesin/DEXTROMETHORPHAN 200 MG/20 MG/10 ML CUP PO PRN ×6 (00:06→22:00)
[2018-01-05] MEDS: SODIUM CHLOR 0.9% 1000 ML INJ 1,000 ML IV SCH (03:56)
[2018-01-05] MEDS: methylPREDNISolone SOD SUCC 40 MG/1 ML VIAL IV PUSH SCH ×3 (06:27→22:00)
[2018-01-05 07:39] LABS: AUTOMATED NEUTROPHIL # 4.4 TH/MM3 (1.8-7.7); BASOPHIL % 0.3 % (0.0-2.0); HEMATOCRIT 39.6 % (35.0-46.0); HEMOGLOBIN 12.8 GM/DL (11.6-15.3); LYMPH % 12.8 % (9.0-44.0); LYMPHOCYTE # 0.7 TH/MM3 (1.0-4.8); MEAN CELL VOLUME 88.2 FL (80.0-100.0); MEAN CORPUSCULAR HEMOGLOBIN 28.4 PG (27.0-34.0); MEAN CORPUSCULAR HGB CONC 32.2 % (32.0-36.0); MEAN PLATELET VOLUME 8.1 FL (7.0-11.0); MONOCYTE # 0.2 TH/MM3 (0-0.9); NEUT % 82.9 % (16.0-70.0); PLATELET COUNT 188 TH/MM3 (150-450); RED BLOOD COUNT 4.49 MIL/MM3 (4.00-5.30); RED CELL DISTRIBUTION WIDTH 13.5 % (11.6-17.2); WHITE BLOOD COUNT 5.3 TH/MM3 (4.0-11.0)
[2018-01-05] MEDS: RESP: ALBUTEROL 2.5 MG/IPRATROPIUM 0.5 MG NEB (SCH) NEB ×3 (07:53→21:48)
[2018-01-05 08:05] LABS: BICARBONATE 23.1 MEQ/L (21.0-32.0); CALCIUM 8.8 MG/DL (8.5-10.1); CREATININE 0.52 MG/DL (0.50-1.00)
--- NOTE | 2018-01-05 08:30 | HHI.PR ---
Subjective Remarks Patient seen and examined today for follow-up on influenza infection, acute asthma exacerbation. Patient states that she is getting a rough start this morning with a lot of cough, phlegm production. Still having a lot of wheeze. Patient has not required any oxygen for O2 saturations at this time. Patient remains afebrile Objective Vitals Vital Signs Date Time Temp Pulse Resp B/P (MAP) Pulse Ox O2 Delivery O2 Flow Rate FiO2 01/05/18 04:04 01/05/18 00:11 98.1 81 18 115/62 (79) 96 01/04/18 20:04 98 21 01/04/18 18:15 97.8 101 18 143/68 (93) 100 01/04/18 17:59 104 20 120/55 (76) 98 01/04/18 17:26 110 98 Room Air 01/04/18 16:39 105 20 116/58 (77) 99 Room Air 01/04/18 15:37 97 20 105/58 (74) 99 Room Air 01/04/18 15:36 98 Room Air 01/04/18 15:28 96 21 01/04/18 15:11 110 22 98 Room Air 01/04/18 15:09 98.6 110 20 143/83 (103) 98 I/O 01/04/18 01/04/18 01/04/18 01/05/18 01/05/18 01/05/18 07:00 15:00 23:00 07:00 15:00 23:00 Intake Total 2590 ml 1000 ml Balance 2590 ml 1000 ml Intake Oral 240 ml IV Total 2350 ml 1000 ml # Voids 1 3 Result Diagram: 01/05/18 0712 01/05/18 0712 Objective Remarks GENERAL: Well-developed, well-nourished, in no acute distress. alert and orientated HEENT: Head is normocephalic without any lesions or masses noted. Facial features are symmetric. Eyes: Extraocular muscles are intact. Conjunctivae were clear. NECK: Supple without any masses. Trachea midline no deviation. No JVD, CARDIAC: Regular rhythm, regular rate. S1/S2 are heard. No murmurs gallops or rubs. LUNGS: Significant wheeze noted throughout entire lung abarca. Rhonchi or rales. No use of accessory muscles on inspiration or expiration. ABDOMEN: Soft, nontender. Nondistended. Bowel sounds heard in all 4 quadrants. No organomegaly or masses. Negative rebound, negative guarding EXTREMITIES: No edema, pulses are equal bilaterally. No cyanosis or clubbing NEUROLOGY: Mood and affect appear appropriate. Cranial nerves II through XII grossly intact. Moving all extremities, speech is clear Urinary Catheter: No Vascular Central Line Catheter: No A/P Assessment and Plan Sepsis, Patient presenting with tachycardia, lactic acidosis, influenza A. Multifactorial with acute asthmatic bronchitis, influenza Influenza testing was positive Blood cultures are pending Strep was negative Chest x-ray was clear Continue Tamiflu Acute asthmatic exacerbation Continue O2 supplementation to maintain O2 sats greater than 92% Continue duo nebs every 6 hours while awake and every 2 hours as needed Continue Symbicort Continue Solu-Medrol 40 mg IV every 8 Patient given Zithromax in the emergency department Robitussin-DM for cough suppression Anxiety Continued home medications DVT prevention Subcutaneous Lovenox Discharge Planning Discharge planning in 24-48 hours depending on patient's response to treatment Gume Cano Jan 05, 2018 08:30
[2018-01-05] MEDS: OSELTAMIVIR PHOSPHATE 75 MG CAP PO SCH ×2 (08:47→21:57)
[2018-01-05] MEDS: FLUoxetine HCL 20 MG CAP PO SCH (08:47)
[2018-01-05] MEDS: ACYCLOVIR 200 MG CAP PO SCH ×2 (08:47→21:00)
[2018-01-05] MEDS: SODIUM CHLORIDE 0.9% FLUSH 10 ML FLUSH IV FLUSH SCH ×2 (08:48→21:57)
[2018-01-05] MEDS: BUDESONIDE-FORMOTEROL 160/4.5 MCG INHALER INH SCH ×2 (08:56→21:57)
--- NOTE | 2018-01-05 09:44 | EKG ---
Date Performed: 01/04/2018 Time Performed: 15:53:11 PTAGE: 67 years EKG: SINUS TACHYCARDIA ABNORMAL RHYTHM ECG PREVIOUS TRACING : 05/11/2015 21.07 DOCTOR: Gualberto Murphy Interpretating Date/Time 01/05/2018 09:42:01
[2018-01-05] MEDS: traMADol HCL 50 MG TAB PO PRN ×2 (10:39→21:59)
[2018-01-05] MEDS: ENOXAPARIN SODIUM 40 MG/0.4 ML SYRINGE SQ SCH (17:33)
[2018-01-05] MEDS: clonazePAM 0.5 MG TAB PO SCH (21:57)
[2018-01-06] VITALS: BP 146/81; PULSE 87; RESP 18; TEMP 97.6; O2SAT 98
[2018-01-06] MEDS: guaiFENesin/DEXTROMETHORPHAN 200 MG/20 MG/10 ML CUP PO PRN (06:22)
[2018-01-06] MEDS: methylPREDNISolone SOD SUCC 40 MG/1 ML VIAL IV PUSH SCH (06:22)
[2018-01-06] MEDS: traMADol HCL 50 MG TAB PO PRN (06:24)
[2018-01-06] MEDS: RESP: ALBUTEROL 2.5 MG/IPRATROPIUM 0.5 MG NEB (SCH) NEB (07:44)
[2018-01-06 07:47] VITALS: O2SAT 98
[2018-01-06] MEDS ORDERED: OSEL75 PO (07:52)
[2018-01-06] MEDS ORDERED: MEDR4PAK PO (07:52)
[2018-01-06] MEDS ORDERED: DEXT10SY2 PO (07:52)
--- NOTE | 2018-01-06 07:52 | HHI.DCPOC ---
Discharge Care Plan Diagnosis: (1) Asthma (2) Bronchitis (3) Influenza Goals to Promote Your Health * To prevent worsening of your condition and complications * To maintain your health at the optimal level Directions to Meet Your Goals Take your medications as prescribed Follow your dietary instruction Follow activity as directed Keep your appointments as scheduled Take your immunizations and boosters as scheduled If your symptoms worsen call your PCP, if no PCP go to Urgent Care Center or Emergency Room Smoking is Dangerous to Your Health. Avoid second hand smoke Call the 24-hour hour crisis hotline for domestic abuse at Gume Cano Jan 06, 2018 07:52
--- NOTE | 2018-01-06 07:56 | HHI.DS ---
Discharge Summary Admission Date Jan 04, 2018 at 16:25 Discharge Date: Jan 06, 2018 Admitting Diagnosis Sepsis, Influenza, Bronchitis, Asthma Exacerbation (1) Asthma ICD Code: J45.909 - Unspecified asthma, uncomplicated (2) Influenza ICD Code: J11.1 - Influenza due to unidentified influenza virus with other respiratory manifestations Status: Acute Procedures None Brief History - From Admission Patient is a 67-year-old female with a history of asthma who comes in to the hospital with a week of increasing shortness of breath with cough and sore throat. She saw her outpatient rv parts and service director who gave her antibiotics and steroids. She did not improve. She had a follow-up appointment today for increased work of breathing and dyspnea on exertion and was sent by his office to the emergency room. This time patient is tachycardic, tachypneic and coughing excessively. Patient's been recommended to be admitted to the hospital due to acute asthma exacerbation and influenza which is positive at this time. CBC/BMP: 01/05/18 0712 01/05/18 0712 Significant Findings Laboratory Tests Test 01/04/18 15:23 01/04/18 15:25 01/04/18 15:28 01/04/18 17:50 Neutrophils (%) (Auto) 89.3 % (16.0-70.0) Lymphocytes (%) (Auto) 6.7 % (9.0-44.0) Lymphocytes # (Auto) 0.5 TH/MM3 (1.0-4.8) Random Glucose 144 MG/DL (74-106) Total Bilirubin 0.1 MG/DL (0.2-1.0) Potassium Level 3.4 MEQ/L (3.5-5.1) Chloride Level 110 MEQ/L (98-107) Estimat Glomerular Filtration Rate 75 ML/MIN (>89) Lactic Acid Level 3.5 mmol/L (0.4-2.0) 6.4 mmol/L (0.4-2.0) Test 01/05/18 07:12 Neutrophils (%) (Auto) 82.9 % (16.0-70.0) Lymphocytes # (Auto) 0.7 TH/MM3 (1.0-4.8) Random Glucose 152 MG/DL (74-106) Chloride Level 110 MEQ/L (98-107) Imaging Last Impressions Chest X-Ray 01/04/18 1513 Signed Impressions: Service Date/Time: Thursday, January 04, 2018 15:21 - CONCLUSION: 1. No acute cardiopulmonary disease. Franklyn Love MD PE at Discharge GENERAL: Well-developed, well-nourished, in no acute distress. alert and orientated HEENT: Head is normocephalic without any lesions or masses noted. Facial features are symmetric. Eyes: Extraocular muscles are intact. Conjunctivae were clear. NECK: Supple without any masses. Trachea midline no deviation. No JVD, CARDIAC: Regular rhythm, regular rate. S1/S2 are heard. No murmurs gallops or rubs. LUNGS: Wheezing has almost completely resolved. There are just minimal wheeze on end expiration no rhonchi or rales. No use of accessory muscles on inspiration or expiration. ABDOMEN: Soft, nontender. Nondistended. Bowel sounds heard in all 4 quadrants. No organomegaly or masses. Negative rebound, negative guarding EXTREMITIES: No edema, pulses are equal bilaterally. No cyanosis or clubbing NEUROLOGY: Mood and affect appear appropriate. Cranial nerves II through XII grossly intact. Moving all extremities, speech is clear Hospital Course 67-year-old female with known history of asthma who originally presented to the hospital at the request of her rv parts and service director for admission. Patient had workup done emergency department found to have criteria meeting sepsis secondary to tachycardia, lactic acidosis, influenza positive. Patient was admitted with Tamiflu, nebulizer treatments, Solu-Medrol. Patient tolerated treatment well. Patient responded to steroids quite nicely. She did have significant wheezing and bronchospasm on presentation, however with treatment she has significantly improved. There is very minimal wheeze if any appreciated on exam. Patient has clinically improved. She still has a cough which is controlled with cough medicine and nebulizer treatments. Patient does have a nebulizer at home. Patient was counseled extensively by respiratory therapist as well as myself to continue current treatment plan, nebulizer treatments at home. We will plan discharge accordingly. Pt Condition on Discharge: Stable Discharge Disposition: Discharge Home Discharge Time: > 30 minutes Discharge Instructions DIET: Follow Instructions for: As Tolerated, No Restrictions Activities you can perform: Regular-No Restrictions Follow up Referrals: PCP Follow-up - 1 Week Pulmonology - 1 Week with Celso Gee MD New Medications: Methylprednisolone Dosepak (Medrol Dosepak) 4 Mg Dspk 4 MG PO DIRECTED, #1 DSPK 0 Refills Per Pharmacist direction Dextromethorphan-Guaifenesin (Dextromethorphan/Guaifene 10-100 mg/5Ml) 100 Mg- 10 Mg/5 Ml Syp 10 ML PO Q4H PRN for cough, #1 BOTTLE Oseltamivir (Tamiflu) 75 Mg Cap 75 MG PO BID for FLU for 3 Days, #6 CAP Continued Medications: Acyclovir (Acyclovir) 400 Mg Tab 400 MG PO BID for Mgmt Viral Infection, TAB 0 Refills Albuterol Sulfate (Proair Hfa) 90 Mcg Hfa.aer.ad 1 NEBULE NEB Q4HR PRN for SOB/WHEEZING B-Complex Vitamins (Vitamin B Complex) 1 Tab 1 TAB PO DAILY Cholecalciferol (Vitamin D3) 1,000 Unit Tab 1000 UNITS PO DAILY for Nutritional Supplement, #1 BOTTLE 0 Refills Clonazepam (Klonopin) 0.5 Mg Tab 0.5 MG PO HS, #60 TAB 0 Refills Cyanocobalamin (Vitamin B-12) 500 Mcg Subl 500 MCG SL DAILY for Nutritional Supplement, TAB.SL 0 Refills Fluoxetine (Prozac) 20 Mg Cap 20 MG PO DAILY, #30 CAP 0 Refills Fluticasone-Salmeterol Inh (Advair Diskus Inh) 250-50 Mcg/Blist Aer 1 PUFF INH BID, #1 INHALER 0 Refills Rinse mouth after use. Garcinia Cambogia-Chromium (Garcinia Cambogia 500-200 mg-Mcg) 200 Mcg-500 Mg Tab 1 TAB PO DAILY for Nutritional Supplement Loratadine (Claritin) 10 Mg Cap 10 MG PO DAILY for Allergy Management, CAP 0 Refills Lutein (Lutein) 10 Mg Tab 10 MG PO DAILY for Nutritional Supplement, TAB 0 Refills Multiple Vitamin (Multiple Vitamin) 1 Tab 1 TAB PO DAILY for Nutritional Supplement, TAB 0 Refills Discontinued Medications: Cefuroxime (Cefuroxime) 500 Mg Tab 500 MG PO BID for Infection, TAB 0 Refills Prednisone (Prednisone) 10 Mg Tab 10 MG PO DAILY, TAB 0 Refills Prednisone (48) 10 mg tab Dose Pack (Prednisone (48) 10 mg tab Dose Pack) 10 Mg Dspk 10 MG PO DIRECTED for Inflammation, #1 DSPK 0 Refills Gume Cano Jan 06, 2018 07:56
[2018-01-06 08:00] VITALS: BP 121/76; PULSE 91; RESP 20; TEMP 98.2; O2SAT 96
[2018-01-06] MEDS: FLUoxetine HCL 20 MG CAP PO SCH (09:04)
[2018-01-06] MEDS: OSELTAMIVIR PHOSPHATE 75 MG CAP PO SCH (09:04)
[2018-01-06] MEDS: SODIUM CHLORIDE 0.9% FLUSH 10 ML FLUSH IV FLUSH SCH (09:04)
[2018-01-06] MEDS: ACYCLOVIR 200 MG CAP PO SCH (09:05)
[2018-01-06] MEDS: BUDESONIDE-FORMOTEROL 160/4.5 MCG INHALER INH SCH (09:05)
== END 2018-01-06 10:47 | disposition home or self-care (01) | DRG 194 ==
LOC: PHED 15:01 → PHEDA 16:25 → PH3A 18:02
PROVIDERS: ADMIT Hospitalist; ATTEND Hospitalist
DX: J10.1 Influenza due to other identified influenza virus with other respiratory manifestations (principal); J45.901 Unspecified asthma with (acute) exacerbation; F41.9 Anxiety disorder, unspecified; H91.90 Unspecified hearing loss, unspecified ear; Z86.73 Personal history of transient ischemic attack (TIA), and cerebral infarction without residual deficits; Z79.82 Long term (current) use of aspirin
CPT/HCPCS: 71046; 80048; 80053; 83605; 83735; 85025; 87040; 87081; 87804; 87880; 93005; 94640; 94664; 96365; 96375; J0456; J0696; J1650; J2920; J2930; J7030; J7050